=== PATIENT | female | born 1980 ===

== ENCOUNTER 2019-02-18 07:49 | Emergency (ER) | payer OTHER ==
[2019-02-18 07:55] VITALS: BP 149/102
[2019-02-18] MEDS ORDERED: TORADOL IM ONE (08:18)
[2019-02-18] MEDS ORDERED: DECADRON IM ONE (08:19)
--- NOTE | 2019-02-18 08:24 | Emergency Department Report ---
ED Neck Pain/Injury HPI - General Chief Complaint: Neck Pain/Injury Stated Complaint: NECK PAIN Time Seen by Provider: 02/18/19 08:12 Mode of arrival: Ambulatory Limitations: No Limitations - History of Present Illness Initial Comments: 39-year-old female presents to ED with left neck pain 2 days. Patient says that she awoke 2 days ago the pain was all, however has progressed over the last 2 days. Patient denies trauma, fever, nausea or vomiting. She denies any recent chiropractic visits for chest movements. Patient denies any numbness or weakness in her extremities. Patient states this occurred approximately one month ago, however it wasn't as bad. Patient states the pain is worse when she attempts to rotate her head leftward. No relief with Tylenol or minal chauhan MD Complaint: neck pain -: days(s) (2) Place: home Radiation: occiput Severity: moderate Quality: aching Consistency: intermittent Improves With: immobilization Worsens With: movement of neck Context: unknown Associated Symptoms: denies: headache, fever, numbness, tingling, weakness, vertigo, difficulty walking, difficulty swallowing, nausea, vomiting Treatments Prior to Arrival: Acetaminophen, other (tiger balm) - Related Data Previous Rx's Medication Instructions Recorded Last Taken Type Naproxen [Naprosyn] 500 mg PO BID #20 tablet 02/18/19 Unknown Rx methOCARBAMOL [Robaxin TAB] 500 mg PO Q8HR PRN #20 tablet 02/18/19 Unknown Rx predniSONE [Deltasone] 50 mg PO QDAY #5 tab 02/18/19 Unknown Rx traMADol [Ultram] 50 mg PO Q6HR PRN #7 tablet 02/18/19 Unknown Rx Allergies Allergy/AdvReac Type Severity Reaction Status Date / Time No Known Allergies Allergy Unverified 02/18/19 07:51 ED Review of Systems ROS: Stated complaint: NECK PAIN Other details as noted in HPI Comment: All other systems reviewed and negative Constitutional: denies: chills, fever Respiratory: denies: cough Gastrointestinal: denies: nausea, vomiting Musculoskeletal: as per HPI Neurological: denies: headache, weakness, numbness, paresthesias, abnormal gait, vertigo ED Past Medical Hx - Past Medical History Previous Medical History?: No - Surgical History Past Surgical History?: No - Medications Home Medications: Home Medications Medication Instructions Recorded Confirmed Last Taken Type Naproxen [Naprosyn] 500 mg PO BID #20 tablet 02/18/19 Unknown Rx methOCARBAMOL [Robaxin TAB] 500 mg PO Q8HR PRN #20 tablet 02/18/19 Unknown Rx predniSONE [Deltasone] 50 mg PO QDAY #5 tab 02/18/19 Unknown Rx traMADol [Ultram] 50 mg PO Q6HR PRN #7 tablet 02/18/19 Unknown Rx ED Physical Exam - General Limitations: No Limitations General appearance: alert, in no apparent distress - Head Head exam: Present: atraumatic, normocephalic - Eye Eye exam: Present: normal appearance, PERRL, EOMI - ENT ENT exam: Present: mucous membranes moist - Neck Neck exam: Present: tenderness (left paraspinal tenderness along trapezius muscle, spasm palpable; decreased ROM, worse with leftward rotation) - Respiratory Respiratory exam: Present: normal lung sounds bilaterally. Absent: respiratory distress - Cardiovascular Cardiovascular Exam: Present: regular rate, normal rhythm - GI/Abdominal GI/Abdominal exam: Absent: distended - Extremities Exam Extremities exam: Present: normal inspection - Neurological Exam Neurological exam: Present: alert, oriented X3, CN II-XII intact. Absent: motor sensory deficit - Psychiatric Psychiatric exam: Present: normal affect, normal mood - Skin Skin exam: Present: warm, dry, intact, normal color. Absent: rash ED Course Vital Signs 02/18/19 07:54 Temperature 98.0 F Pulse Rate 102 H Respiratory 18 Rate Blood Pressure 149/102 O2 Sat by Pulse 99 Oximetry - Reevaluation(s) Reevaluation #1: 02/18/19 09:48 Pt given toradol and decadron. States is feeling much better. Pt has improved ROM with rotation on exam. ED Medical Decision Making - Medical Decision Making - recurrence of acute torticollis - no neuro deficits on exam - afebrile - denies trauma - improved greatly w/ toradol and decadron - return precautions given - outpt f/u advised - rx given for naprosyn, prednisone, robaxin, ultram - Differential Diagnosis torticollis Critical care attestation.: If time is entered above; I have spent that time in minutes in the direct care of this critically ill patient, excluding procedure time. ED Disposition Clinical Impression: Torticollis, acute Disposition: DC-01 TO HOME OR SELFCARE Is pt being admited?: No Condition: Stable Instructions: Spasmodic Torticollis (ED) Prescriptions: predniSONE [Deltasone] 50 mg PO QDAY #5 tab Naproxen [Naprosyn] 500 mg PO BID #20 tablet methOCARBAMOL [Robaxin TAB] 500 mg PO Q8HR PRN #20 tablet PRN Reason: Muscle Spasm traMADol [Ultram] 50 mg PO Q6HR PRN #7 tablet PRN Reason: Pain Referrals: SADE MONTENEGRO MD [Primary Care Provider] - 3-5 Days BALDEV DYER MD [Staff Physician] - 3-5 Days Time of Disposition: 09:50
== END 2019-02-18 10:00 | disposition home or self-care (01) ==
LOC: ED 07:49
DX: M43.6 Torticollis (principal)
CPT/HCPCS: 96372; 99282; J1100; J1885